=== PATIENT | male | born 2000 | race African-American/Black ===

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

== ENCOUNTER → 2018-05-03 | Outpatient (CLI) | payer MEDICAID ==
[2018-05-03 17:36] LABS: CHLAM PCR NOT DETECTED (NOT DETECT); GON PCR NOT DETECTED (NOT DETECT)
== END ==
LOC: OD 14:32
PROVIDERS: ATTEND Nurse Practitioner Family
DX: R36.9 Urethral discharge, unspecified (principal)
CPT/HCPCS: 87491; 87591

== ENCOUNTER 2018-05-18 12:30 | Emergency (ER) | payer MEDICAID ==
--- NOTE | 2018-05-18 12:56 | ER Document Report ---
ED Medical Screen (RME) - General Chief Complaint: Penile Pain Stated Complaint: PENILE PAIN Time Seen by Provider: 05/18/18 12:54 Primary Care Provider: CURRY MCCLAIN FNP-BC [Primary Care Provider] - Follow up as needed Mode of Arrival: Ambulatory Information source: Patient TRAVEL OUTSIDE OF THE [place] IN LAST 30 DAYS: No - HPI Patient complains to provider of: penile/rectal pain Onset: Other - pt. with c/o penile/pelvic/rectal pain for the past month. Denies penile bleeding/d/c - Related Data Allergies/Adverse Reactions: nut - unspecified Allergy (Mild, Verified 05/18/18 12:34) Past Medical History - Past Medical History Cardiac Medical History: Denies: Hx Heart Attack, Hx Hypertension Pulmonary Medical History: Reports: Hx Asthma - MILD A CHILD Denies: Hx Bronchitis, Hx COPD, Hx Pneumonia Neurological Medical History: Denies: Hx Seizures Renal/ Medical History: Denies: Hx Peritoneal Dialysis GI Medical History: Reports: Hx Irritable Bowel, Hx Colonoscopy Musculoskeltal Medical History: Denies Hx Arthritis - Immunizations Immunizations up to date: Yes Hx Diphtheria, Pertussis, Tetanus Vaccination: Yes Physical Exam - Vital signs Vitals: Temp Pulse Resp BP Pulse Ox 99.7 F 83 18 138/67 H 98 05/18/18 12:35 05/18/18 12:35 05/18/18 12:35 05/18/18 12:35 05/18/18 12:35 Course - Vital Signs Vital signs: Temp Pulse Resp BP Pulse Ox 99.7 F 83 18 138/67 H 98 05/18/18 12:35 05/18/18 12:35 05/18/18 12:35 05/18/18 12:35 05/18/18 12:35 Doctor's Discharge - Discharge Referrals: CURRY MCCLAIN FNP-BC [Primary Care Provider] - Follow up as needed
[2018-05-18 13:50] LABS: ABSOLUTE EOSINOPHILS # (AUTO) 0.1 10^3/uL (0.0-0.6); ABSOLUTE LYMPHOCYTES (AUTO) 1.2 10^3/uL (0.5-4.7); ABSOLUTE MONOCYTES (AUTO) 0.5 10^3/uL (0.1-1.4); ABSOLUTE NEUT (AUTO) 2.7 10^3/uL (1.7-8.2); BASOPHILS % (AUTO) 0.7 % (0-2); EOSINOPHILS % (AUTO) 2.9 % (0-6); HEMATOCRIT 43.3 % (37.9-51.0); HEMOGLOBIN 14.7 g/dL (13.5-17.0); LYMPHOCYTES % (AUTO) 25.5 % (13-45); MEAN CORPUSCULAR HEMOGLOBIN 29.5 pg (27.0-33.4); MEAN CORPUSCULAR HGB CONC 33.9 g/dL (32.0-36.0); MEAN CORPUSCULAR VOLUME 87 fl (80-97); MONOCYTES % (AUTO) 10.2 % (3-13); PLATELET COUNT 304 10^3/uL (150-450); RED BLOOD COUNT 4.97 10^6/uL (4.35-5.55); RED CELL DISTRIBUTION WIDTH 12.4 % (11.5-14.0); SEGMENTED NEUTROPHILS % (AUTO) 60.7 % (42-78); TOTAL CELLS COUNTED % (AUTO) 100 %; WHITE BLOOD COUNT 4.5 10^3/uL (4.0-10.5)
[2018-05-18 13:56] LABS: APPEARANCE,URINE SLIGHTLY-CLOUDY; BILIRUBIN,URINE NEGATIVE (NEGATIVE); COLOR,URINE YELLOW; GLUCOSE, URINE NEGATIVE (NEGATIVE); KETONES,URINE NEGATIVE (NEGATIVE); LEUKOCYTE ESTERASE,URINE NEGATIVE (NEGATIVE); NITRITE,URINE NEGATIVE (NEGATIVE); PROTEIN,URINE NEGATIVE (NEGATIVE); URINE SPECIFIC GRAVITY 1.026
[2018-05-18 14:07] LABS: ALANINE AMINOTRANSFERASE 88 U/L (10-40); ALBUMIN 4.9 g/dL (3.7-5.6); ALKALINE PHOSPHATASE 64 U/L (65-260); ANION GAP 10 (5-19); ASPARTATE AMINO TRANSFERASE 188 U/L (10-45); BILIRUBIN,DIRECT 0.1 mg/dL (0.0-0.4); BILIRUBIN,TOTAL 0.9 mg/dL (0.2-1.3); BLOOD UREA NITROGEN 13 mg/dL (7-20); CALCIUM 10.6 mg/dL (8.4-10.2); CARBON DIOXIDE 30 mmol/L (22-30); CHLORIDE 104 mmol/L (98-107); GLUCOSE 96 mg/dL (75-110); POTASSIUM 5.1 mmol/L (3.6-5.0); SODIUM 143.6 mmol/L (137-145); TOTAL PROTEIN 8.4 g/dL (6.3-8.2)
--- NOTE | 2018-05-18 14:49 | ER Document Report ---
Addendum entered and electronically signed by SUSSY CHIRINOS PA-C 05/18/18 15:19: Discharge - Discharge Clinical Impression: Penile pain, Rectal pain Condition: Good Disposition: HOME, SELF-CARE Instructions: Anal Fissure ([facility]) Additional Instructions: You have been treated prophylactically for urogenital and rectal gonorrhea and chlamydia. The test for herpes simplex virus is pending as is the test for your anal gonorrhea and chlamydia. Please practice safe sex measures. Condoms when used appropriately can reduce the risk of transmission of sexually transmitted infections including HIV and hepatitis as well as gonorrhea, chlamydia, syphilis, and herpes. Prescriptions: Hydrocortisone [Anusol-Hc] 30 gm RC TID #15 cream.gm. Referrals: CURRY MCCLAIN FNP-BC [NO LOCAL MD] - Follow up as needed Original Note: ED General - General Chief Complaint: Penile Pain Stated Complaint: PENILE PAIN Time Seen by Provider: 05/18/18 12:54 Primary Care Provider: CURRY MCCLAIN FNP-BC [NO LOCAL MD] - Follow up as needed Mode of Arrival: Ambulatory Information source: Patient TRAVEL OUTSIDE OF THE [place] IN LAST 30 DAYS: No - HPI Patient complains to provider of: Penile pain and rectal pain Onset: Other - 1 month Onset/Duration: Gradual, Persistent Severity: Severe Pain Level: 5 Associated symptoms: denies: Chills, Fever Exacerbated by: Denies Relieved by: Denies Similar symptoms previously: No Recently seen / treated by doctor: No Notes: Patient is a 17-year-old -Citizen Of [place] male coming in today with chief complaint of penile and rectal pain which is been going on for about a month. Patient is homosexual and has only been in relationship with males. He denies having any penile discharge. Denies having any anal discharge. Denies fevers and shaking chills. Denies dysuria. He states that he had gonorrhea and chlamydia test done in the past week and it was resulted negative. Also reports a negative HIV test. He says his last anal intercourse with him as the recipient was about 3 weeks ago. - Related Data Allergies/Adverse Reactions: nut - unspecified Allergy (Mild, Verified 05/18/18 12:34) Past Medical History - General Information source: Patient - Social History Smoking Status: Never Smoker Family History: Reviewed & Not Pertinent Patient has suicidal ideation: No Patient has homicidal ideation: No - Past Medical History Cardiac Medical History: Denies: Hx Heart Attack, Hx Hypertension Pulmonary Medical History: Reports: Hx Asthma - MILD A CHILD Denies: Hx Bronchitis, Hx COPD, Hx Pneumonia Neurological Medical History: Denies: Hx Seizures Renal/ Medical History: Denies: Hx Peritoneal Dialysis GI Medical History: Reports: Hx Irritable Bowel, Hx Colonoscopy Musculoskeletal Medical History: Denies Hx Arthritis - Immunizations Immunizations up to date: Yes Hx Diphtheria, Pertussis, Tetanus Vaccination: Yes Review of Systems - Review of Systems Notes: Constitutional: No fevers. No chills. EENT: No eye redness. No eye pain. No ear pain. No sore throat. Cardiovascular: No chest pain. No palpitations. Respiratory: No cough. No shortness of breath. No respiratory distress. Gastrointestinal: Positive for rectal pain Genitourinary: Positive for penile pain. Musculoskeletal: Atraumatic. No swelling. No deformities. Skin: No rash or lesions. Lymphatic: No swollen lymph nodes. Neurologic: No headache. No syncope. Psychiatric: No suicidal or homicidal ideation. Physical Exam - Vital signs Vitals: Temp Pulse Resp BP Pulse Ox 99.7 F 83 18 138/67 H 98 05/18/18 12:35 05/18/18 12:35 05/18/18 12:35 05/18/18 12:35 05/18/18 12:35 - Notes Notes: General: Well-developed, well-nourished. In no acute distress. Non-toxic appearing. Cardiac: Well-perfused. Regular rate and rhythm. No murmurs, rubs, or gallops. Pulmonary: No respiratory distress. No cyanosis. Bilateral lung fiels are clear to auscultation. Abdominal: Non-distended. Non-rigid. Bowels sounds are present in all four quadrants. No guarding or rebound. Anus is not erythematous or hot. There is no anal discharge. HEENT: Head is atraumatic. Conjunctivae not reddened. No tearing. PERRL. EOMI. Orbits atraumatic. No periorbital swelling or erythema. Oropharynx is without erythema, swelling, or exudates. Neck: Supple. No adenopathy. No meningismus. Dermatologic: Warm with good turgor. No rash. Atraumatic. Chest: Atraumatic. No chest wall tenderness to palpation. Musculoskeletal: Moves all extremities well. No range of motion deficits. no muscular or joint tenderness. No paraspinal muscle tenderness. no midline spinal tenderness or step-off. Genitourinary: External genitalia is visualized. No skin lesions. Scrotum is not swollen. Testicles are normal in caliber. No masses appreciated. Testicles are nontender as well as the epididymes. No obvious hernias Neurologic: No gross neurologic deficits. Psychiatric: Normal mood. Course - Re-evaluation Re-evalutation: 05/18/18 14:58 Patient has a concern for herpes. Will draw HSV 1 and 2 with a blood draw. Also asked him if he has had testing for chlamydia and gonorrhea rectally and he said no. The lab said that they can send out's specific swab for rectal PCR for gonorrhea and chlamydia which we will collected today. Patient said that he would be amenable to getting Rocephin and Zithromax here as an empiric therapy for possible STD proctitis. - Vital Signs Vital signs: Temp Pulse Resp BP Pulse Ox 99.7 F 83 18 138/67 H 98 05/18/18 12:35 05/18/18 12:35 05/18/18 12:35 05/18/18 12:35 05/18/18 12:35 - Laboratory Result Diagrams: 05/18/18 13:22 05/18/18 13:22 Laboratory results interpreted by me: 05/18/18 05/18/18 13:22 13:22 Potassium 5.1 H Calcium 10.6 H AST 188 H ALT 88 H Alkaline Phosphatase 64 L Total Protein 8.4 H Urine Urobilinogen 2.0 H Discharge - Discharge Clinical Impression: Penile pain, Rectal pain Condition: Good Disposition: HOME, SELF-CARE Instructions: Anal Fissure ([facility]) Additional Instructions: You have been treated prophylactically for urogenital and rectal gonorrhea and chlamydia. The test for herpes simplex virus is pending as is the test for your anal gonorrhea and chlamydia. Please practice safe sex measures. Condoms when used appropriately can reduce the risk of transmission of sexually transmitted infections including HIV and hepatitis as well as gonorrhea, chlamydia, syphilis, and herpes. Referrals: CURRY MCCLAIN FNP-ANTWON [NO LOCAL MD] - Follow up as needed
[2018-05-18] MEDS ORDERED: CEFTRIAXONE INJ 250 MG VIAL IM ONE (15:00)
[2018-05-18] MEDS ORDERED: AZITHROMYCIN 250 MG TABLET PO ONE (15:01)
[2018-05-18 15:23] LABS: CHLAM PCR NOT DETECTED (NOT DETECT); GON PCR NOT DETECTED (NOT DETECT)
[2018-05-18] MEDS ORDERED: LIDOCAINE 2% INJ-PF (20 MG/ML) 2 ML AMPUL INJ ONE (15:42)
[2018-05-18] MEDS ORDERED: LIDOCAINE 1% INJ-PF (10 MG/ML) 30 ML SDV ONE (15:43)
[2018-05-18 16:20] VITALS: BP 136/66
[2018-05-21 22:36] LABS: HSV I DNA Negative (Negative)
[2018-05-22 07:14] LABS: HSV II DNA Negative (Negative)
== END 2018-05-18 16:15 | disposition home or self-care (01) ==
LOC: ER 12:30
DX: N48.89 Other specified disorders of penis (principal); K62.89 Other specified diseases of anus and rectum; Z20.2 Contact with and (suspected) exposure to infections with a predominantly sexual mode of transmission; Z91.018 Allergy to other foods
CPT/HCPCS: 99283; 96372; 87491 ×2; 87591 ×2; 87529; 36415; 85025; 80053; 81001; Q0144; J3490; J0696

== ENCOUNTER 2018-11-02 14:03 | Emergency (ER) | payer MEDICAID ==
[2018-11-02 14:09] VITALS: BP 132/65
--- NOTE | 2018-11-02 14:41 | RADIOLOGY REPORT (SQ) ---
EXAM DESCRIPTION: KUB/ABDOMEN (SINGLE VIEW) COMPLETED DATE/TIME: 11/02/2018 2:33 pm REASON FOR STUDY: abd cramping, hx of IBS COMPARISON: 09/05/2017 NUMBER OF VIEWS: One view. TECHNIQUE: Supine radiographic image of the abdomen acquired. LIMITATIONS: None. FINDINGS: BOWEL GAS PATTERN: Normal bowel gas pattern. No dilated loops. CALCIFICATIONS: No suspicious calcifications. SOFT TISSUES: No gross mass or suggestion of organomegaly. HARDWARE: None in the abdomen. BONES: No acute fracture. No worrisome bone lesions. OTHER: No other significant finding. IMPRESSION: No radiographic evidence for acute abdominal disease. TECHNICAL DOCUMENTATION: JOB ID: [id number] [employer]- All Rights Reserved Reading location - IP/workstation name: [email or web address]
--- NOTE | 2018-11-02 15:01 | ER Document Report ---
HPI - HPI Time Seen by Provider: 11/02/18 14:13 Pain Level: 4 Notes: Patient is a 17-year-old male with past medical history of IBS presenting to the emergency department with chief complaint of diarrhea over the last few days. Patient reports he had 5 episodes of diarrhea yesterday but had none today. He states he has been taking Imodium and eating prunes at home for his diarrhea. When I asked patient why he will take that for diarrhea he states he also has intermittent constipation. He denies any abdominal pain, nausea or vomiting, denies any fever. - REPRODUCTIVE Reproductive: DENIES: : - DERM Skin Color: Normal, [place] Past Medical History - General Information source: Patient - Social History Smoking Status: Never Smoker Frequency of alcohol use: None Drug Abuse: None Family History: Reviewed & Not Pertinent Patient has suicidal ideation: No Patient has homicidal ideation: No - Past Medical History Cardiac Medical History: Denies: Hx Heart Attack, Hx Hypertension Pulmonary Medical History: Reports: Hx Asthma - MILD A CHILD Denies: Hx Bronchitis, Hx COPD, Hx Pneumonia Neurological Medical History: Denies: Hx Seizures Renal/ Medical History: Denies: Hx Peritoneal Dialysis GI Medical History: Reports: Hx Irritable Bowel, Hx Colonoscopy Musculoskeletal Medical History: Denies Hx Arthritis - Immunizations Immunizations up to date: Yes Hx Diphtheria, Pertussis, Tetanus Vaccination: Yes Vertical Provider Document - CONSTITUTIONAL Notes: PHYSICAL EXAMINATION: GENERAL: Well-appearing, well-nourished and in no acute distress. HEAD: Atraumatic, normocephalic. EYES: Pupils equal round extraocular movements intact, conjunctiva are normal. ENT: Nares patent NECK: Normal range of motion LUNGS: No respiratory distress Abdomen: Abdomen soft, nontender with no guarding no rebound. Musculoskeletal: Normal range of motion NEUROLOGICAL: Normal speech, normal gait. PSYCH: Normal mood, normal affect. SKIN: Warm, Dry, normal turgor, no rashes or lesions noted. - INFECTION CONTROL TRAVEL OUTSIDE OF THE [place] IN LAST 30 DAYS: No Course - Re-evaluation Re-evalutation: Patient appears well, nontoxic and his abdomen is soft and nontender. Vital signs are within normal limits. A KUB was obtained and is unremarkable. Patient will be discharged home with information regarding his IBS. Patient will follow-up with gastroenterology as needed. ED return precautions were discussed, patient verbalized understanding and agreement with same. KUB X-Ray 11/02/18 14:18 IMPRESSION: No radiographic evidence for acute abdominal disease. The patient's emergency department workup and current diagnosis were explained to the patient and or family. Follow-up instructions were provided. Medications if prescribed were discussed. Instructions for when to return to the emergency department including specific worrisome symptoms were discussed with the patient and/or family. - Vital Signs Vital signs: Temp Pulse Resp BP Pulse Ox 98.2 F 77 16 132/65 H 96 11/02/18 14:07 11/02/18 14:07 11/02/18 14:07 11/02/18 14:07 11/02/18 14:07 Discharge - Discharge Clinical Impression: IBS (irritable bowel syndrome) Qualifiers: Irritable bowel syndrome type: with both diarrhea and constipation Qualified Code(s): K58.2 - Mixed irritable bowel syndrome Condition: Stable Disposition: HOME, SELF-CARE Additional Instructions: Irritable Bowel Syndrome The cause of irritable bowel syndrome is unknown. Although often called "colitis", it is not an infection or inflammatory condition. Symptoms vary, but can include periodic abdominal cramping, migratory abdominal pains, diarrhea, or constipation. Commonly, a few days of constipation is followed by loose stools, then constipation begins again. There is no specific test for irritable bowel syndrome. The disease is diagnosed by history and exam findings, and by finding no evidence of other disease. Irritable bowel syndrome is treated by making the stool softer and bulkier. Regular meals, including plenty of soluble fiber, help. Avoid foods which provoke cramping. Stool "bulking agents," such as Metamucil, help. Expect occasional flare-ups. Call the physician if symptoms worsen, such as severe or constant abdominal pain, fever, blood in the stool, increasing constipation, or more frequent or severe diarrhea. The x-ray of your abdomen was negative today. I would try to keep a food diary to see if there are any triggers causing your symptoms. Please follow-up with a county demonstrator if the symptoms persist. A name has been given to below. Return to the emergency department for any new or worsening symptoms to include persistent abdominal pain, persistent vomiting, blood in your vomit or stool or development of fever. Referrals: BYRON VITAL MD [ACTIVE STAFF] - Follow up as needed
== END 2018-11-02 15:08 | disposition home or self-care (01) ==
LOC: ER 14:03
DX: K58.2 Mixed irritable bowel syndrome (principal)
CPT/HCPCS: 74018; 99284